=== PATIENT | female | born 1955 | race Caucasian/White ===

== ENCOUNTER 2019-08-22 19:02 | Emergency (ER) | payer MEDICARE, BC ==
[~2019-08-22] VITALS: Ht 162.6 cm; Wt 95.5 kg
[2019-08-22 19:14] VITALS: BP 200/68
== END 2019-08-22 20:00 | disposition home or self-care (01) ==
LOC: ER 19:03
DX: S60.212A Contusion of left wrist, initial encounter (principal); I10 Essential (primary) hypertension; Z88.1 Allergy status to other antibiotic agents; W18.30XA Fall on same level, unspecified, initial encounter; Y93.89 Activity, other specified; Y92.098 Other place in other non-institutional residence as the place of occurrence of the external cause; Y99.9 Unspecified external cause status
CPT/HCPCS: 29125; 73110; 99283